=== PATIENT | female | born 1960 | race Caucasian/White ===

== ENCOUNTER 2023-09-26 19:06 | Emergency (ER) | payer MEDICARE ==
[~2023-09-26] VITALS: Ht 170.1 cm; Wt 106.1 kg
[2023-09-26] MEDS ORDERED: ONDANSETRON 4 MG ORAL DISSOLVE TABLET PO STA (19:23)
[2023-09-26] MEDS ORDERED: ONDA8TAB13 SL (19:36)
--- NOTE | 2023-09-26 19:37 | ED Head Injury ---
General Chief Complaint: Head/Cervical Problems Stated Complaint: FELL,HIT HEAD Nursing Triage Note: Pt arrived per POV and was ambulatory to [facility] with steady gait. Pt reported at 1500 getting stuff out of car and tripped and hit back of head against stone statue of a deer. Pt c/o L posterior head hurting behind ear. Small bump noted L occipital with scant abrasion. Mild nausea without emesis, denies LOC, and pupils MIMI. Source: patient Exam Limitations: no limitations History of Present Illness Date Seen by Provider: Sep 26, 2023 Time Seen by Provider: 19:20 Initial Comments 62-year-old female arrives via private vehicle after a fall at about 3:00 this afternoon. She has become more nauseated throughout the day. No vomiting. Denies loss of consciousness. She is not on blood thinning medications. She states she simply tripped and hit her head on a concrete deer statue in her yard. She is increasingly concerned because she has a friend that hit her head and did not get checked out and ended up passing away from a brain bleed. All other systems reviewed and negative except documented per HPI. Voice recognition software was used to help create this chart Allergies and Home Medications Allergies Coded Allergies: No Known Drug Allergies (Unverified , 09/26/23) Patient Home Medication List Home Medication List Reviewed: Yes Review of Systems Review of Systems Constitutional: see HPI Past Etfvigf-Dbrkkt-Nnlvyd Hx Patient Social History Tobacco Use?: No Substance use?: No Alcohol Use?: No Past Medical History Surgery/Hospitalization HX: GERD, Gastric Sleeve Physical Exam Vital Signs Vital Signs - First Documented 09/26/23 19:10 Temp 36.1 Pulse 71 Resp 16 B/P (MAP) 140/76 (97) Pulse Ox 98 O2 Delivery Room Air Capillary Refill : Less Than 3 Seconds Height, Weight, BMI Height: '" Weight: lbs. oz. kg; 36.00 BMI Method: General Appearance: WD/WN, no apparent distress HEENT: normal ENT inspection, pharynx normal, other (Small cephalhematoma in the left occipital region) Neck: non-tender, supple, normal inspection Cardiovascular: regular rate, rhythm, no murmur Respiratory: chest non-tender, lungs clear, normal breath sounds, no respiratory distress, no accessory muscle use Gastrointestinal: normal bowel sounds, non tender, soft Extremities: non-tender, normal capillary refill Psychiatric: alert, oriented x 3 Crainal Nerves: normal hearing, normal speech, PERRL Coordination/Gait: normal finger to nose, normal gait Motor/Sensory: no motor deficit, no sensory deficit, no pronator drift Skin: normal color, warm/dry Progress/Results/Core Measures Results/Orders My Orders Orders - WALTER VASQUEZ DO Ct Head Wo (09/26/23 19:23) Ondansetron Oral Dissolve Tab (Ondanset (09/26/23 19:23) Vital Signs/I&O 09/26/23 19:10 Temp 36.1 Pulse 71 Resp 16 B/P (MAP) 140/76 (97) Pulse Ox 98 O2 Delivery Room Air Blood Pressure Mean: 97 Departure Communication (Admissions) Patient is hemodynamically stable and neurologically intact. Normal he likely would not do a CT scan of her head however she is excessively concerned due to to a friend of hers that with a similar mechanism who did not get evaluated. For that reason CT scanning was ordered and it is negative. Impression Primary Impression: Fall Qualified Codes: W19.XXXA - Unspecified fall, initial encounter Additional Impression: Nausea Disposition: HOME, SELF-CARE Condition: Stable Departure-Patient Inst. Referrals: NO,LOCAL PHYSICIAN (PCP/Family) Primary Care Physician Patient Instructions: Preventing Falls ED Add. Discharge Instructions: You were seen in the emergency department today after a fall, hitting your head. Your CT scan is normal. Use the nausea medication as prescribed as needed. Increase your fluids at home and rest. Return to the emergency department for any severe concerns. All discharge instructions reviewed with patient and/or family. Voiced understanding. Scripts Ondansetron (Ondansetron Odt) 8 Mg Tab.rapdis 8 MG SL Q6H PRN for NAUSEA/VOMITING for 3 Days, #12 TAB Prov: WALTER VASQUEZ DO 09/26/23 WALTER VASQUEZ DO Sep 26, 2023 19:37
[2023-09-26 19:40] VITALS: BP 140/76
--- NOTE | 2023-09-26 19:43 | Diagnostic Imaging Report ---
PROCEDURE: CT head without contrast. TECHNIQUE: Multiple contiguous axial images were obtained through the brain without the use of intravenous contrast. Auto Exposure Controls were utilized during the CT exam to meet ALARA standards for radiation dose reduction. INDICATION: Fall, pain, nausea, headache. COMPARISON: None available. FINDINGS: Age-appropriate volume loss. No intracranial hemorrhage. No intracranial mass, mass effect, midline shift, herniation, hydrocephalus, or extra-axial fluid collection. No CT evidence of an acute ischemic infarction. The orbits are unremarkable. The paranasal sinuses are clear. The calvarium and extracalvarial soft tissues are unremarkable besides hyperostosis frontalis internus. IMPRESSION: No acute intracranial abnormality. Dictated by: Dictated on workstation # [id number]
== END 2023-09-26 19:40 | disposition home or self-care (01) ==
LOC: ER FS 19:09
DX: S00.03XA Contusion of scalp, initial encounter (principal); W01.198A Fall on same level from slipping, tripping and stumbling with subsequent striking against other object, initial encounter; Y92.096 Garden or yard of other non-institutional residence as the place of occurrence of the external cause
CPT/HCPCS: 70450